=== PATIENT | female | born 1970 | race African-American/Black ===

== ENCOUNTER 2018-09-28 12:26 | Emergency (ER) | payer BC ==
[2018-09-28] MEDS ORDERED: methylPREDNISolone Sod Succ/PF 125 MG/2 ML VIAL ONE (12:52)
== END 2018-09-28 13:10 | disposition home or self-care (01) ==
LOC: NAV ERS 12:26
DX: M54.5 Low back pain (principal); E11.9 Type 2 diabetes mellitus without complications; I10 Essential (primary) hypertension; F17.210 Nicotine dependence, cigarettes, uncomplicated; Z79.899 Other long term (current) drug therapy
CPT/HCPCS: 96372; J2930